=== PATIENT | male | born 1995 | race Caucasian/White ===

== ENCOUNTER 2017-11-14 18:46 | Emergency (ER) | payer MEDICAID ==
[~2017-11-14] VITALS: Ht 195.6 cm; Wt 93.4 kg
--- NOTE | 2017-11-14 19:00 | NUR ---
Patient discharged to home in stable conditon. Written and verbal after care instructions given. Patient verbalizes understanding of instructions.pt walks in stady gait. pt calling brother to come nd take the pt. pt says has brother and sister for support.
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
--- NOTE | 2017-11-14 19:50 | NUR ---
Dr. Rivera at bedside for MSE.
--- NOTE | 2017-11-14 20:15 | NUR ---
Pt out of ER for CT.
--- NOTE | 2017-11-14 20:23 | NUR ---
Patient back to ER from CT.
--- NOTE | 2017-11-14 20:47 | NUR ---
Patient discharged to home in stable conditon. Written and verbal after care instructions given. Patient verbalizes understanding of instructions. Patient ambulated out of ER with steady gait, no acute signs of distress, VSS, all belongings taken, copy of CT report provided.
[2017-11-14 20:48] VITALS: BP 124/77
== END 2017-11-14 20:49 | disposition home or self-care (01) ==
LOC: ER 18:47
DX: R42 Dizziness and giddiness (principal); H43.399 Other vitreous opacities, unspecified eye; Z91.041 Radiographic dye allergy status
CPT/HCPCS: 70450; A4663

== ENCOUNTER 2017-11-28 01:12 | Emergency (ER) | payer MEDICAID ==
--- NOTE | 2017-11-28 01:30 | NUR ---
PATIENT LEFT WITHOUT BEING SEEN BY ERMD OR TRIAGED
== END 2017-11-28 01:30 | disposition left against medical advice (07) ==
LOC: ER 01:28
DX: Z53.21 Procedure and treatment not carried out due to patient leaving prior to being seen by health care provider (principal)